=== PATIENT | female | born 1985 ===

== ENCOUNTER → 2019-09-17 07:06 | Outpatient (CLI) | payer OTHER | END | disposition home or self-care (01) | LOC: LAB 07:06 | PROVIDERS: ATTEND Internal Medicine Nephrology | DX: J12.89 Other viral pneumonia (principal); B96.0 Mycoplasma pneumoniae [M. pneumoniae] as the cause of diseases classified elsewhere; J10.00 Influenza due to other identified influenza virus with unspecified type of pneumonia; Z11.59 Encounter for screening for other viral diseases; Z20.828 Contact with and (suspected) exposure to other viral communicable diseases; N18.1 Chronic kidney disease, stage 1; E78.49 Other hyperlipidemia; M32.8 Other forms of systemic lupus erythematosus; M06.89 Other specified rheumatoid arthritis, multiple sites; M79.642 Pain in left hand; M79.641 Pain in right hand ==

== ENCOUNTER 2020-10-18 09:51 | Emergency (ER) | payer OTHER ==
[~2020-10-18] VITALS: Ht 152.4 cm; Wt 59.0 kg
[2020-10-18] MEDS ORDERED: NAPROXEN375 MG PO (14:24)
== END 2020-10-18 14:48 | disposition home or self-care (01) ==
LOC: ER 09:51
DX: N30.80 Other cystitis without hematuria (principal); R10.2 Pelvic and perineal pain

== ENCOUNTER 2021-02-22 09:00 | Outpatient (CLI) | payer OTHER ==
[~2021-02-22 09:00] MED LIST: NAPROXEN375 MG PO
== END 2021-02-22 09:15 | disposition home or self-care (01) ==
LOC: PPH VACUNA 09:00
PROVIDERS: ATTEND Emergency Medicine Pediatric Emergency Medicine
DX: Z23 Encounter for immunization (principal)

== ENCOUNTER 2022-03-28 12:50 | Outpatient (CLI) | payer OTHER | END 2022-03-28 13:15 | disposition home or self-care (01) | LOC: LAB 12:50 | PROVIDERS: ATTEND Internal Medicine Nephrology | DX: Z00.00 Encounter for general adult medical examination without abnormal findings (principal); Z11.3 Encounter for screening for infections with a predominantly sexual mode of transmission ==

== ENCOUNTER 2023-08-23 10:15 | Inpatient (IN) | payer OTHER ==
[~2023-08-23] VITALS: Ht 162.6 cm; Wt 61.2 kg
[2023-08-30] MEDS ORDERED: CEFTRIAXONE SODIUM 2,000 MG VIAL ONE (12:17)
[2023-08-30] MEDS ORDERED: METRONIDAZOLE/SODIUM CHLORIDE 500 MG/100 ML PIGGYBACK IV ONE (12:17)
[2023-08-30] MEDS ORDERED: BUPIVACAINE HCL/MPF 0.5% 30ML VIAL ONE (12:42)
[2023-08-30] MEDS ORDERED: LIDOCAINE HCL 1%/EPINEPHRINE 20ML VIAL IJ ONE (12:43)
[2023-08-30] MEDS ORDERED: POVIDONE-IODINE 118 ML BOTT TOP ONE (12:43)
[2023-08-30] MEDS ORDERED: VISTASEAL DUAL APPICATOR 1 EACH APPL TOP ONE (13:39)
[2023-08-30] MEDS ORDERED: THROMBIN,HU/FIBRINOGEN/CALCIUM 10 ML SYRINGE TOP ONE (13:39)
[2023-08-30] MEDS ORDERED: OxyCODONE HCL 5 MG TABLET (ROXICODONE) PO PRN (17:15)
[2023-08-30] MEDS ORDERED: MORPHINE SULFATE 4 MG/ML CARTRIDGE IV PRN (17:15)
[2023-08-30] MEDS ORDERED: RINGERS SOLUTION,LACTATED 1,000 ML IV SCH (17:15)
[2023-08-30] MEDS ORDERED: ONDANSETRON HCL 2 MG/ML VIAL IV PRN (17:15)
[2023-08-30 19:18] LABS: HEMATOCRIT 36.4 % (36.0-45.00); HEMOGLOBIN 12.5 g/dL (12.0-15.00); MEAN CELL VOLUME 95.9 fL (80.00-100.00); MEAN CORPUSCULAR HEMOGLOBIN 32.9 pg (27.00-32.0); MEAN CORPUSCULAR HGB CONC 34.3 g/dl (32.0-36.0); PLATELET COUNT 225 K/uL (150-450); RED CELL DISTRIBUTION WIDTH 12.7 % (11.5-14.5)
[2023-08-30] MEDS ORDERED: ACETAMINOPHEN 500 MG GEL..CAP PO SCH (20:00)
[2023-08-30] MEDS ORDERED: CELECOXIB 200 MG CAPSULE PO SCH (21:00)
[2023-08-30] MEDS ORDERED: SIMETHICONE 125 MG CAPSULE PO SCH (21:00)
[2023-08-30] MEDS ORDERED: FAMOTIDINE/PF 20 MG/2 ML VIAL IV PUSH SCH (21:00)
[2023-08-31] MEDS ORDERED: METOCLOPRAMIDE HCL 5 MG/ML VIAL IV SCH (01:00)
[2023-08-31] MEDS ORDERED: GABAPENTIN 300 MG CAPSULE PO SCH (01:00)
[2023-08-31 06:42] LABS: HEMATOCRIT 31.6 % (36.0-45.00); HEMOGLOBIN 11.1 g/dL (12.0-15.00); MEAN CELL VOLUME 93.6 fL (80.00-100.00); MEAN CORPUSCULAR HGB CONC 35.3 g/dl (32.0-36.0); PLATELET COUNT 201 K/uL (150-450); RED BLOOD COUNT 3.38 M/uL (4.00-6.00); RED CELL DISTRIBUTION WIDTH 12.7 % (11.5-14.5)
[2023-08-31 06:54] LABS: ALBUMIN 2.9 gm/dL (3.4-5.0); CALCIUM 8.3 mg/dL (8.5-10.1); CREATININE SERUM 0.65 mg/dL (0.55-1.02); GFR 102.01; MAGNESIUM 1.8 mg/dL (1.8-2.4); PHOSPHOROUS 3.7 mg/dL (2.5-4.9); POTASSIUM 4.04 mEq/L (3.5-5.1)
[2023-08-31] MEDS ORDERED: HYOSCYAMINE SULFATE 0.125 MG TAB.SUBL SL SCH (09:00)
[2023-08-31] MEDS ORDERED: LACTOBACILLUS ACIDOPHILUS 1 CAP CAP PO SCH (09:00)
[2023-08-31] MEDS ORDERED: ENOXAPARIN SODIUM 40 MG/0.4 ML SYRINGE SUBCUTANEO SCH (17:00)
[2023-08-31] MEDS ORDERED: POLYETHYLENE GLYCOL 3350 17 GM BLIST.PACK PO SCH (17:00)
[2023-09-01 04:46] LABS: HEMATOCRIT 28.9 % (36.0-45.00); MEAN CELL VOLUME 93.8 fL (80.00-100.00); MEAN CORPUSCULAR HGB CONC 35.8 g/dl (32.0-36.0); PLATELET COUNT 183 K/uL (150-450); RED BLOOD COUNT 3.08 M/uL (4.00-6.00); RED CELL DISTRIBUTION WIDTH 12.7 % (11.5-14.5)
[2023-09-01 04:52] LABS: HEMOGLOBIN 10.3 g/dL (12.0-15.00); MEAN CORPUSCULAR HEMOGLOBIN 33.4 pg (27.00-32.0)
[2023-09-01 05:07] LABS: CREATININE SERUM 0.62 mg/dL (0.55-1.02); GFR 107.73; PHOSPHOROUS 2.1 mg/dL (2.5-4.9); POTASSIUM 4.03 mEq/L (3.5-5.1)
[2023-09-01 07:49] LABS: URINE APPEARANCE Clear; URINE BILIRRUBIN Negative (NEGATIVE); URINE BLOOD Negative; URINE COLOR Yellow; URINE GLUCOSE Negative (NEGATIVE); URINE LEUKOCYTE Negative; URINE NITRATE Negative; URINE PROTEIN Negative (NEGATIVE); URINE UROBILINOGEN 0.2 E.U./dl
[2023-09-01 07:53] LABS: URINE EPITHELIAL CELLS 3.8 uL (0.0-38.8); URINE RBC 5.1 uL (0.0-20.8); URINE WBC 1.8 uL (0.0-23.2)
[2023-09-01 08:07] LABS: URINE BACTERIA 0 uL (0.0-1933)
[2023-09-01] MEDS ORDERED: ENOXAPARIN SODIUM 40 MG/0.4 ML SYRINGE SUBCUTANEO SCH (09:00)
[2023-09-01] MEDS ORDERED: POTASSIUM PHOS,M-BASIC-D-BASIC 3 MM/ML VIAL IV NR (11:00)
[2023-09-01] MEDS ORDERED: NAPH,MB-DB/K PH,MBDB 1 PKT PACKET PO STA (11:11)
== END 2023-09-01 13:18 | disposition home or self-care (01) | DRG 743 ==
LOC: SURG 08-30 07:00 → O/R 08-30 07:10 → MEDI 08-30 07:10 → SURG 08-30 10:15 → MEDI 08-30 12:42
PROVIDERS: Internal Medicine Geriatric Medicine; Surgery; ADMIT Obstetrics & Gynecology Gynecology; ATTEND Obstetrics & Gynecology Gynecology
PROC: 0UB94ZZ Excision of Uterus, Percutaneous Endoscopic Approach (ICD-10-PCS; 2023-08-30)
PROC: 0DTJ4ZZ Resection of Appendix, Percutaneous Endoscopic Approach (ICD-10-PCS; 2023-08-30)
PROC: 0DNW4ZZ Release Peritoneum, Percutaneous Endoscopic Approach (ICD-10-PCS; 2023-08-30)
PROC: 0DJD8ZZ Inspection of Lower Intestinal Tract, Via Natural or Artificial Opening Endoscopic (ICD-10-PCS; 2023-08-30)
PROC: 0UT94ZZ Resection of Uterus, Percutaneous Endoscopic Approach (ICD-10-PCS; principal; 2023-08-30 07:00)
PROC: 0UT74ZZ Resection of Bilateral Fallopian Tubes, Percutaneous Endoscopic Approach (ICD-10-PCS; 2023-08-30 07:00)
DX: N80.03 Adenomyosis of the uterus (principal); N72 Inflammatory disease of cervix uteri; N80.399 Endometriosis of the pelvic peritoneum, other specified sites, unspecified depth; N94.6 Dysmenorrhea, unspecified; N80.519 Endometriosis of the rectum, unspecified depth; N80.3C2 Endometriosis of the left uterosacral ligament, unspecified depth; N80.549 Endometriosis of the appendix, unspecified depth; R10.2 Pelvic and perineal pain; Z20.822 Contact with and (suspected) exposure to COVID-19

== ENCOUNTER 2024-01-25 08:32 | Outpatient (CLI) | payer OTHER | END 2024-01-25 08:42 | disposition home or self-care (01) | LOC: SONOGRAMA 08:32 | PROVIDERS: ATTEND Internal Medicine Nephrology | DX: N20.1 Calculus of ureter (principal); N18.1 Chronic kidney disease, stage 1 ==

== ENCOUNTER 2024-10-18 07:46 | Outpatient (CLI) | payer OTHER ==
[2024-10-18 08:23] LABS: URINE APPEARANCE Clear; URINE BACTERIA 4674.8 uL (0.0-1933); URINE BILIRRUBIN Negative (NEGATIVE); URINE BLOOD Negative; URINE COLOR Yellow; URINE EPITHELIAL CELLS 3.9 uL (0.0-38.8); URINE GLUCOSE Negative (NEGATIVE); URINE KETONE Negative (NEGATIVE); URINE LEUKOCYTE Trace; URINE NITRATE Negative; URINE PROTEIN Negative (NEGATIVE); URINE RBC 2.3 uL (0.0-20.8); URINE UROBILINOGEN 0.2 E.U./dl; URINE WBC 31.6 uL (0.0-23.2)
[2024-10-18 08:27] LABS: URINE CAST 0.00 uL (0.0-1.40)
[2024-10-18 08:33] LABS: BASO % 0.5 % (0.1-1.2); EOS # 0.09 (0.04-0.54); EOS % 1.1 % (0.7-7.0); LYMPH # 1.57 (1.18-3.74); LYMPH % 18.4 % (19.3-53.1); MEAN PLATELET VOLUME 10.60 fl (9.4-12.4); MONO # 0.74 (0.24-0.82); MONO % 8.7 % (4.7-12.5); NEUT # 6.08 (1.56-6.13); NEUT % 71.1 % (34.0-71.1); RED CELL DISTRIBUTION WIDTH 12.6 % (11.6-14.4)
[2024-10-18 08:42] LABS: BUN CREA RATIO 23.0 (7.0-25.0); CREATININE SERUM 0.65 mg/dL (0.55-1.02); GFR 100.95; GLUCOSE FASTING 85.0 mg/dL (65-100); OSMOLALITY SERUM 285.0 MOSM/KG (275-295)
== END 2024-10-18 08:10 | disposition home or self-care (01) ==
LOC: LAB 07:46
PROVIDERS: ATTEND Internal Medicine Nephrology
DX: N18.1 Chronic kidney disease, stage 1 (principal); N39.0 Urinary tract infection, site not specified

== ENCOUNTER 2024-10-18 08:27 | Outpatient (CLI) | payer OTHER | END 2024-10-18 08:32 | disposition home or self-care (01) | LOC: SONOGRAMA 08:27 | PROVIDERS: ATTEND Internal Medicine Nephrology | DX: K52.9 Noninfective gastroenteritis and colitis, unspecified (principal) ==